=== PATIENT | female | born 1990 | race Caucasian/White ===

== ENCOUNTER 2025-08-29 21:52 | Emergency (ER) | payer MEDICAID ==
[~2025-08-29] VITALS: Ht 152.4 cm; Wt 68.0 kg
[2025-08-29 23:05] VITALS: BP 140/92; TEMP 98.1; O2SAT 100
[2025-08-30] MEDS ORDERED: ACETAMINOPHEN 325 MG TABLET ONE (00:02)
[2025-08-30] MEDS ORDERED: IBUPROFEN 600 MG TABLET ONE (00:03)
[2025-08-30] MEDS: ACETAMINOPHEN 325 MG TABLET PO ONE (00:04)
[2025-08-30] MEDS: IBUPROFEN 600 MG TABLET PO ONE (00:04)
== END 2025-08-30 00:07 | disposition home or self-care (01) ==
LOC: ER 21:54
DX: M79.622 Pain in left upper arm (principal); Z97.5 Presence of (intrauterine) contraceptive device; Z90.49 Acquired absence of other specified parts of digestive tract